=== PATIENT | male | born 1940 | race Caucasian/White ===

== ENCOUNTER 2024-05-10 16:20 | Outpatient (RCR) | payer OTHER, SELFPAY | END 2024-05-10 23:59 | disposition home or self-care (01) | LOC: RPT 16:20 | PROVIDERS: ATTENDING PHYSICIAN Physical Medicine & Rehabilitation | DX: S72.009D Fracture of unspecified part of neck of unspecified femur, subsequent encounter for closed fracture with routine healing (principal); Z47.1 Aftercare following joint replacement surgery | CPT/HCPCS: 97110; 97112; 97116; 97162; 97530 ==

== ENCOUNTER 2024-06-04 16:10 | Outpatient (RCR) | payer OTHER, SELFPAY | END 2024-06-05 11:59 | disposition home or self-care (01) | LOC: RPT 16:10 | PROVIDERS: ATTENDING PHYSICIAN Physical Medicine & Rehabilitation | DX: S72.009D Fracture of unspecified part of neck of unspecified femur, subsequent encounter for closed fracture with routine healing (principal); Z47.1 Aftercare following joint replacement surgery; R26.2 Difficulty in walking, not elsewhere classified; Z73.6 Limitation of activities due to disability; R26.89 Other abnormalities of gait and mobility; R20.0 Anesthesia of skin; R20.2 Paresthesia of skin; Z96.641 Presence of right artificial hip joint | CPT/HCPCS: 97110; 97112; 97530 ==

== ENCOUNTER → 2024-06-13 08:45 | Outpatient (REF) | payer OTHER, SELFPAY | LOC: RAD 08:45 | PROVIDERS: ATTENDING PHYSICIAN Internal Medicine Geriatric Medicine | DX: E03.8 Other specified hypothyroidism (principal); E78.2 Mixed hyperlipidemia; M25.469 Effusion, unspecified knee; I10 Essential (primary) hypertension; K21.9 Gastro-esophageal reflux disease without esophagitis; I11.9 Hypertensive heart disease without heart failure; K40.90 Unilateral inguinal hernia, without obstruction or gangrene, not specified as recurrent; R06.09 Other forms of dyspnea; R23.1 Pallor; Z13.89 Encounter for screening for other disorder; E03.9 Hypothyroidism, unspecified; R91.8 Other nonspecific abnormal finding of lung field | CPT/HCPCS: 71250 ==

== ENCOUNTER → 2024-07-05 10:13 | Outpatient (REF) | payer OTHER, SELFPAY | LOC: PET 10:13 | PROVIDERS: ATTENDING PHYSICIAN Internal Medicine Geriatric Medicine | DX: R91.8 Other nonspecific abnormal finding of lung field (principal) | CPT/HCPCS: 78815; A9552 ==

== ENCOUNTER → 2024-12-15 13:37 | Outpatient (REF) | payer OTHER, SELFPAY | LOC: MRI 3T 13:37 | PROVIDERS: ATTENDING PHYSICIAN Internal Medicine Geriatric Medicine | DX: R53.1 Weakness (principal); R26.89 Other abnormalities of gait and mobility; M79.18 Myalgia, other site; R25.1 Tremor, unspecified | CPT/HCPCS: 70551 ==

== ENCOUNTER → 2025-03-04 13:04 | Outpatient (REF) | payer OTHER, SELFPAY | LOC: HWRAD 13:04 | PROVIDERS: ATTENDING PHYSICIAN Internal Medicine Geriatric Medicine | DX: I10 Essential (primary) hypertension (principal); E78.2 Mixed hyperlipidemia; I27.20 Pulmonary hypertension, unspecified; K21.9 Gastro-esophageal reflux disease without esophagitis; I11.9 Hypertensive heart disease without heart failure; K40.90 Unilateral inguinal hernia, without obstruction or gangrene, not specified as recurrent; R23.1 Pallor; E03.9 Hypothyroidism, unspecified; R91.8 Other nonspecific abnormal finding of lung field; M54.50 Low back pain, unspecified; Z13.89 Encounter for screening for other disorder; R53.1 Weakness; R26.89 Other abnormalities of gait and mobility; M79.18 Myalgia, other site; R25.1 Tremor, unspecified; I73.9 Peripheral vascular disease, unspecified | CPT/HCPCS: 72114 ==

== ENCOUNTER → 2025-04-16 10:30 | Outpatient (REF) | payer OTHER, SELFPAY | LOC: RCS 10:30 | PROVIDERS: ATTENDING PHYSICIAN Internal Medicine Geriatric Medicine | DX: K21.9 Gastro-esophageal reflux disease without esophagitis (principal); I10 Essential (primary) hypertension; E78.2 Mixed hyperlipidemia; I27.20 Pulmonary hypertension, unspecified; I11.9 Hypertensive heart disease without heart failure; K40.90 Unilateral inguinal hernia, without obstruction or gangrene, not specified as recurrent; R23.1 Pallor; E03.9 Hypothyroidism, unspecified; R91.8 Other nonspecific abnormal finding of lung field; M54.50 Low back pain, unspecified; Z13.89 Encounter for screening for other disorder; R53.1 Weakness; R26.89 Other abnormalities of gait and mobility; M79.18 Myalgia, other site; R25.1 Tremor, unspecified; I73.9 Peripheral vascular disease, unspecified; R00.0 Tachycardia, unspecified; R00.2 Palpitations | CPT/HCPCS: 93225; 93226 ==

== ENCOUNTER → 2025-05-13 09:20 | Outpatient (REF) | payer OTHER, SELFPAY | LOC: HWRCS 09:20 | PROVIDERS: ATTENDING PHYSICIAN Internal Medicine Cardiovascular Disease; FAMILY PHYSICIAN Internal Medicine Geriatric Medicine | DX: I48.0 Paroxysmal atrial fibrillation (principal) | CPT/HCPCS: 93306 ==

== ENCOUNTER → 2025-05-21 07:45 | Outpatient (REF) | payer OTHER, SELFPAY | LOC: PET 07:45 | PROVIDERS: ATTENDING PHYSICIAN Internal Medicine Cardiovascular Disease | DX: I48.0 Paroxysmal atrial fibrillation (principal); R07.89 Other chest pain; R06.09 Other forms of dyspnea | CPT/HCPCS: 78431; A9555; J2785 ==

== ENCOUNTER → 2025-09-19 12:32 | Outpatient (REF) | payer OTHER, SELFPAY | LOC: HWRAD 12:32 | PROVIDERS: ATTENDING PHYSICIAN Internal Medicine Critical Care Medicine; FAMILY PHYSICIAN Internal Medicine Geriatric Medicine | DX: R91.8 Other nonspecific abnormal finding of lung field (principal) | CPT/HCPCS: 71250 ==